=== PATIENT | male | born 1985 | race Caucasian/White ===

== ENCOUNTER 2020-10-04 21:00 | Emergency (ER) | payer OTHER, SELFPAY ==
[2020-10-04 21:13] VITALS: BP 136/85; PULSE 84; RESP 18; TEMP 36.3; O2SAT 100
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
[2020-10-04] MEDS: FLUORESCEIN SOD 1 MG/STRIP (21:38)
[2020-10-04] MEDS: TETRACAINE HCL 0.5% OPHTH SOLN 4 ML BTL 1 DROP (21:38)
[2020-10-04] MEDS: DACRIOSE EYE IRRIGATION 118 ML BOTTLE (21:38)
[2020-10-04] MEDS: ERYTHROMYCIN OPHTH OINTMENT 1 GM TUBE 1 APPLIC RIGHT EYE (22:00)
== END 2020-10-04 22:40 | disposition home or self-care (01) ==
PROVIDERS: Emergency Provider Emergency Medicine
DX: T26.11XA Burn of cornea and conjunctival sac, right eye, initial encounter (principal); F17.210 Nicotine dependence, cigarettes, uncomplicated; X19.XXXA Contact with other heat and hot substances, initial encounter
CPT/HCPCS: 99283; A9270